=== PATIENT | male | born 1950 | race Two or more races ===

== ENCOUNTER 2020-04-04 10:15 | Inpatient (IN) | payer OTHER ==
[~2020-04-04] VITALS: Ht 180.3 cm; Wt 111.1 kg
[2020-04-04] MEDS ORDERED: AMLODIPINE-OLM1 EACH PO (15:49)
[2020-04-12] MEDS ORDERED: HYDROCHLOROTHIA25 MG (08:09)
[2020-04-12] MEDS ORDERED: CANDESARTAN CIL16 MG (08:09)
[2020-04-12] MEDS ORDERED: AMLODIPINE BESYL5 MG (08:09)
== END 2020-04-14 19:44 | disposition home or self-care (01) | DRG 331 ==
LOC: SURH 04-11 08:05 → O/R 04-11 08:05 → SURH 04-11 10:15
PROVIDERS: ADMIT Colon & Rectal Surgery; ATTEND Colon & Rectal Surgery
PROC: 07BC4ZX Excision of Pelvis Lymphatic, Percutaneous Endoscopic Approach, Diagnostic (ICD-10-PCS; 2020-04-11)
PROC: 0DTJ4ZZ Resection of Appendix, Percutaneous Endoscopic Approach (ICD-10-PCS; 2020-04-11)
PROC: 0DTF4ZZ Resection of Right Large Intestine, Percutaneous Endoscopic Approach (ICD-10-PCS; principal; 2020-04-11 16:30)
DX: D12.2 Benign neoplasm of ascending colon (principal); I10 Essential (primary) hypertension

== ENCOUNTER 2021-06-27 08:16 | Day surgery (SDC) | payer OTHER ==
[~2021-06-27 08:16] MED LIST: AMLODIPINE BESYL5 MG; AMLODIPINE-OLM1 EACH PO; CANDESARTAN CIL16 MG; HYDROCHLOROTHIA25 MG
== END 2021-06-27 15:15 | disposition home or self-care (01) ==
LOC: AMB-ENDOS 08:16
PROVIDERS: ATTEND Colon & Rectal Surgery
DX: D12.2 Benign neoplasm of ascending colon (principal); I10 Essential (primary) hypertension; K64.4 Residual hemorrhoidal skin tags; Z85.038 Personal history of other malignant neoplasm of large intestine; Z86.010 Personal history of colon polyps; Z20.822 Contact with and (suspected) exposure to COVID-19